=== PATIENT | female | born 1950 | race Caucasian/White ===

== ENCOUNTER 2023-02-27 16:13 | Outpatient (REF) | payer MEDICARE, SELFPAY ==
[2023-02-27 16:38] LABS: MANUAL DIFF FLAG NO
[2023-02-27 17:54] LABS: Basophils Absolute Auto 0.1 X10*3/uL (0.0-0.2); Basophils Percent Auto 1.1 % (0-2); Eosinophils Absolute Auto 0.3 X10*3/uL (0.0-0.4); Eosinophils Percent Auto 4.6 % (0-4); Hematocrit 34.5 % (37.0-47.0); Hemoglobin 11.3 g/dl (12.0-16.0); Imm Gran Abs Auto 0.02 X10*3/uL (0.00-0.03); Imm Gran Pct Auto 0.4 % (0.0-0.4); Lymphocytes Absolute Auto 1.4 X10*3/uL (1.2-4.9); Lymphocytes Percent Auto 24.6 % (20-40); Mean Corpuscular HGB Conc 32.8 g/dl (31.0-35.0); Mean Corpuscular Hemoglobin 31.9 pg (27.0-33.0); Mean Corpuscular Volume 97.5 fL (80.0-98.0); Mean Platelet Volume 10.3 fL (9.4-12.3); Monocytes Absolute Auto 0.6 X10*3/uL (0.1-1.2); Monocytes Percent Auto 9.7 % (2-11); Neutrophils Absolute Auto 3.4 x10*3/uL (2.0-8.3); Neutrophils Percent Auto 59.6 % (45-73); Platelet Count 332 X10*3/uL (160-400); Red Blood Count 3.54 X10*6/uL (4.20-5.50); Red Cell Distribution Width 12.8 % (11.0-16.0); White Blood Count 5.7 X10*3/uL (4.8-10.8)
[2023-02-27 18:18] LABS: Alanine Aminotransferase 11 U/L (0-31); Albumin Level 3.8 g/dL (3.5-5.0); Alkaline Phosphatase 141 U/L (39-117); Anion Gap 14 (12-20); Aspartate Amino Transferase 15 U/L (5-31); Bilirubin Direct < 0.2 mg/dL (0.0-0.5); Bilirubin Total 0.2 mg/dL (0.0-1.0); Blood Urea Nitrogen 31 mg/dL (9-16); Calcium 9.3 mg/dL (8.4-10.2); Carbon Dioxide 22 mmol/L (22-29); Chloride 106 mmol/L (96-108); Estimated Glomerular Filt Rate 39; Glucose Random 107 mg/dL (60-115); Potassium 3.6 mmol/L (3.3-5.1); Sodium 138 mmol/L (135-145); Total Protein 7.1 g/dL (6.5-8.0)
== END 2023-02-27 16:14 | disposition home or self-care (01) ==
LOC: HO.LAB 16:13
PROVIDERS: Visit Provider Registered Nurse
DX: G35 Multiple sclerosis (principal)
CPT/HCPCS: 36415; 80048; 80076; 85025

== ENCOUNTER 2024-09-30 10:12 | Outpatient (AMB) | payer MEDICARE, SELFPAY ==
--- NOTE | 2024-09-30 11:13 | A.OFFVIS_ITS ---
Intake Visit Reasons: 2m f/u Allergies atorvastatin (From Lipitor) Allergy (Verified 09/29/24 15:44) Unknown ciprofloxacin (From Cipro) Allergy (Verified 09/29/24 15:44) Unknown Sulfa (Sulfonamide Antibiotics) Allergy (Verified 09/29/24 15:44) Unknown Medication List - Last Reconciled 09/30/24 by Lauri Melendez MD baclofen 10 mg PO DAILY carbamazepine mg PO carvedilol 3.125 mg PO BID colesevelam 1,875 mg PO BID fluoxetine 40 mg PO DAILY folic acid 1 mg PO DAILY lisinopril 30 mg PO DAILY meloxicam 15 mg PO DAILY ofatumumab (Kesimpta Pen) mg subcut pravastatin 10 mg PO BEDTIME HPI Comments Details: Currently on Kesimpta since 06/08/24. In the last 2 weeks she has had numbness from knees down bilaterally, R>L with some ankle swelling on the right. She has noted that she feel sout of sorts when she walks and? and feels unstsady. Unstaedy gait . Uses the hicks or a walker when outside. Has urinary frequency and burning also. ?No accidents or injuries. No cold or flu-like illness. No headaches. No numbness or tingling. MRI brain and C-spine on 02/06/2024 were stable with extensive supratentorial and brain stem, C-spine lesion burden, was not on DMD. Takes care of grandchildren and takes care of cooking. Does not drive because of poor vision from macular degeneration. Periods of dizziness, ongoing since 11/2022. Few minor falls at home. Walking with walker when outside of home. Left leg feels bit weaker at times. Bladder control is Ok mostly. Uses Depends now. Mood is okay. Sleep is okay. Had trigeminal neuralgia in 2021 in left face that lasted 6 months. Diagnosed with multiple sclerosis in 1970s, treated with Copaxone for about 1 year at some point. Tried Bafiertam in 04/2023, but stopped after few weeks after becoming itchy all over without rash. Vital Signs [facility] Medical History (Updated 09/30/24 @ 11:27 by Lauri Melendez MD) Depression with anxiety Hypertension HLD (hyperlipidemia) Cervical disc disease Multiple sclerosis Social History (Updated 09/29/24 @ 15:43 by Lori Bernal MA) Patient Tobacco Use Status: Never used Tobacco Review of Systems Const Details: General/Constitutional:? Change in appetitedenies,?denies.? Chillsdenies,?denies.? Fatigueadmits,?admits .? Feverdenies,?denies.? Weight gaindenies,?denies.? Weight lossdenies,?denies. ???Sleep:? Difficulty getting to sleepdenies,?denies.? Difficulty maintaining sleep denies?,?denies?.? Urge to move legsdenies,?denies.? Teeth grinding denies,?denies.? Shouting or Kicking during sleepdenies,?denies.? Abnormal behavior during sleepdenies,?denies.? Excessive sleepdenies,?denies.? Snoring denies,?denies.? Daytime sleepinessdenies,?denies. ???Respiratory:? Shortness of breathdenies,?denies.? Chest paindenies,?denies.? Cough denies,?denies. ???Cardiovascular:? Chest pain at restdenies,?denies.? Chest pain with exertiondenies,?denies.? Claudicationdenies,?denies.? Dizzinessdenies,?denies.? Fluid accumulation in the legsdenies,?denies.? Irregular heartbeatdenies,?denies.? Palpitationsdeni es,?denies. ???Gastrointestinal:? Abdominal paindenies,?denies.? Constipationdenies,?denies.? Diarrhea denies,?denies.? Difficulty swallowingdenies,?denies.? Heartburndenies,?denies.? Nauseadenies,?denies.? Rectal bleedingdenies,?denies. ???Genitourinary:? Frequent urinationdenies,?denies.? Urgencyadmits,?admits.? Incontinence denies,?denies.? Erectile Dysfunctiondenies,?denies. ???Musculoskeletal:? Neck paindenies,?denies.? Back paindenies,?denies.? Muscle achesdenies,?denies .? Painful jointsdenies,?denies.? Sciaticadenies,?denies.? Weakness admits,?admits. ???Neurologic:? Difficulty swallowingadmits,?admits.? Balance difficultydenies,?denies.? Coordinationnormal,?normal.? Difficulty speakingdenies,?denies.? Dizzinessadmits ,?admits.? Faintingdenies,?denies.? Gait abnormalitydenies,?denies.? Headache denies,?denies.? Loss of strengthdenies,?denies.? Loss of use of extremity denies,?denies.? Low back paindenies,?denies.? Memory lossadmits,?admits.? Seizuresdenies,?denies.? Ticsdenies,?denies.? Tingling/Numbnessdenies,?denies.? Transient loss of visiondenies,?denies.? Tremordenies,?denies. ???Psychiatric:? Anxietydenies,?denies.? Auditory/visual hallucinationsdenies,?denies.? Delusionsdenies,?denies.? Depressed moodadmits,?admits.? Stressorsadmits,?admits .? Substance abusedenies,?denies.? Suicidal thoughtsdenies,?denies. Physical Exam Neuro Other: Neurological: Abnormal neurological findings:??Left internuclear ophthalmoplegia.? Mild weakness of left hip flexors.? Slight hyperreflexia in the right knee. Walking with walker.?Mental Status:??alert and oriented X 3,?Normal attention, orientation, memory and affect.?Cranial Nerves:??Pupils are equal, round and reactive to light. Fundoscopy shows normal disc bilaterally. External occular muscles with internuclear ophthalmoplegia as described above?. Vsual ferreira are full, no ptosis. Face is symmetrical, no facial weakness or droop. Facial sensations are normal. Tongue protrudes in midline. Palate elevates symmetrically. Shoulder shrugging is normal..?Motor Examination:??As above Normal muscle tone, bulk and strength,?No atrophy or fasciculations,?No drift of the extended upper extremities,?Deep tendon reflexes are 2+?,?Plantars are flexor?.?Straight Leg Raising:??90 degrees.?Sensory Exam:??Normal light touch, temperature, pinprick, vibration and joint-position sensations?,?Rhomberg sign is absent.?Coordination:??no ataxia,?no titubation,?mkbsno-mt-qqmg, noiy-vrdi-flrm test and rapid alternating movements were normal.?Gait Exam:??walking with walker.?Cerebellar Signs:??Tzhxbq-mh-aada and xvkj-fy-zpcq is normal,?no dysdiadochokinesia?.?Extrapyramidal System:??No tremor, rigidity with normal facial expressions,?No bradykinesia, no bradyphrenia. Normal arm swing and posture. No propulsion or retropulsion.?Speech:??Normal,?no dysphasia or dysarthria..? Mini Mental Status Exam: Level of Consciousness:??Alert.?Orientation:??Knows correct year, month, date, day and season,?Knows correct city, county and state. Knows correct location and floor.?Registration:??Able to register 3 objects.?Attention:??Serial 7's performed accurately.?Recall:??Able to recall 3 out of 3 objects.?Language:??Normal spontaneous speech, fluency, repetition,naming, comprehension, reading and writing.?Total Score:??30/30.? General Examination: GENERAL APPEARANCE:??normal,?in no acute distress.?HEART:??S1, S2 normal,?no murmurs.?LUNGS:??clear anteriorly and posteriorly.?MU SCULOSKELETAL:??normal.?EXTREMITIES:??no edema.?PSYCH:??alert, oriented,?cognitive function intact,?cooperative with exam.? Assessment & Plan Assessment & Plan (1) UTI (urinary tract infection): Code(s): N39.0 - Urinary tract infection, site not specified Category: Medical (2) Multiple sclerosis: Comment: since 1970s Code(s): G35 - Multiple sclerosis Category: Medical Plan Continue current meds. Check labs. Monitor for worsening OF new Numbness of legs Orders: Orders Basic Metabolic Panel Today G35 - Multiple sclerosis, N39.0 - Urinary tract infection, site not specified UA CC w/rflx Micro + Cult Today G35 - Multiple sclerosis, N39.0 - Urinary tract infection, site not specified Complete Blood Count Auto Diff Today N39.0 - Urinary tract infection, site not specified Coding Level of Care Code Est Pt Level 4 (37435) Diagnoses UTI (urinary tract infection) N39.0 Multiple sclerosis G35
--- NOTE | 2024-09-30 11:43 | A.OFFVIS_ITS ---
Intake Visit Reasons: 2m f/u Allergies atorvastatin (From Lipitor) Allergy (Verified 09/29/24 15:44) Unknown ciprofloxacin (From Cipro) Allergy (Verified 09/29/24 15:44) Unknown Sulfa (Sulfonamide Antibiotics) Allergy (Verified 09/29/24 15:44) Unknown Medication List - Last Reconciled 09/30/24 by Lauri Melendez MD baclofen 10 mg PO DAILY carbamazepine mg PO carvedilol 3.125 mg PO BID colesevelam 1,875 mg PO BID fluoxetine 40 mg PO DAILY folic acid 1 mg PO DAILY lisinopril 30 mg PO DAILY meloxicam 15 mg PO DAILY ofatumumab (Kesimpta Pen) mg subcut pravastatin 10 mg PO BEDTIME HPI Comments Details: The patient is a 74-year-old female with RR-MS opresenting with worsening bilateral lower extremity numbness and difficulty walking. The patient has abno rmal sensations in both legs from the knees down, worse in the right leg, alongside swelling around the right ankle. Symptoms emerged around the 15 of September. She also experiences vertigo with a spinning sensation that might relate to rapid head movements; this is mostly noted when the patient is walking or upon standing up. Besides, she reports increased urinary frequency accompanied by a slight burning sensation and recent constipation. She started Kesimpta on 06/08/24 MRI brain and C-spine on 02/06/2024 were stable with extensive supratentorial and brain stem, C-spine lesion burden, was not on DMD. Takes care of grandchildren and takes care of cooking. Does not drive because of poor vision from macular degeneration. Periods of dizziness, ongoing since 11/2022. Few minor falls at home. Walking with walker when outside of home. Left leg feels bit weaker at times. Bladder control is okay. Mood is okay. Sleep is okay. Had trigeminal neuralgia in 2021 in left face that lasted 6 months. Diagnosed with multiple sclerosis in , treated with Copaxone for about 1 year at some point. Tried Bafiertam in 04/2023, but stopped after few weeks after becoming itchy all over without rash. [facility] Medical History (Updated 09/30/24 @ 11:27 by Lauri Melendez MD) Depression with anxiety Hypertension HLD (hyperlipidemia) Cervical disc disease Multiple sclerosis Social History (Updated 09/29/24 @ 15:43 by Lori Bernal MA) Patient Tobacco Use Status: Never used Tobacco Review of Systems Const Details: General/Constitutional:? Change in appetitedenies,?denies.? Chillsdenies,?denies.? Fatigueadmits,?admits .? Feverdenies,?denies.? Weight gaindenies,?denies.? Weight lossdenies,?denies. ???Sleep:? Difficulty getting to sleepdenies,?denies.? Difficulty maintaining sleep denies?,?denies?.? Urge to move legsdenies,?denies.? Teeth grinding denies,?denies.? Shouting or Kicking during sleepdenies,?denies.? Abnormal behavior during sleepdenies,?denies.? Excessive sleepdenies,?denies.? Snoring denies,?denies.? Daytime sleepinessdenies,?denies. ???Respiratory:? Shortness of breathdenies,?denies.? Chest paindenies,?denies.? Cough denies,?denies. ???Cardiovascular:? Chest pain at restdenies,?denies.? Chest pain with exertiondenies,?denies.? Claudicationdenies,?denies.? Dizzinessdenies,?denies.? Fluid accumulation in the legsdenies,?denies.? Irregular heartbeatdenies,?denies.? Palpitations denies,?denies. ???Gastrointestinal:? Abdominal paindenies,?denies.? Constipationdenies,?denies.? Diarrhea denies,?denies.? Difficulty swallowingdenies,?denies.? Heartburndenies,?denies.? Nauseadenies,?denies.? Rectal bleedingdenies,?denies. ???Genitourinary:? Frequent urinationdenies,?denies.? Urgencyadmits,?admits.? Incontinence denies,?denies.? Erectile Dysfunctiondenies,?denies. ???Musculoskeletal:? Neck paindenies,?denies.? Back paindenies,?denies.? Muscle achesdenies,?denies .? Painful jointsdenies,?denies.? Sciaticadenies,?denies.? Weaknessadmits,? admits. ???Neurologic:? Difficulty swallowingadmits,?admits.? Balance difficultydenies,?denies.? Coordinationnormal,?normal.? Difficulty speakingdenies,?denies.? Dizzinessadmits ,?admits.? Faintingdenies,?denies.? Gait abnormalitydenies,?denies.? Headache denies,?denies.? Loss of strengthdenies,?denies.? Loss of use of extremity denies,?denies.? Low back paindenies,?denies.? Memory lossadmits,?admits.? Seizuresdenies,?denies.? Ticsdenies,?denies.? Tingling/Numbnessdenies,?denies.? Transient loss of visiondenies,?denies.? Tremordenies,?denies. ???Psychiatric:? Anxietydenies,?denies.? Auditory/visual hallucinationsdenies,?denies.? Delusionsdenies,?denies.? Depressed moodadmits,?admits.? Stressorsadmits,?admits .? Substance abusedenies,?denies.? Suicidal thoughtsdenies,?denies. Physical Exam Neuro Other: Neurological: Abnormal neurological findings:??Left internuclear ophthalmoplegia.? Mild weakness of left hip flexors.? Slight hyperreflexia in the right knee. Walking with walker.?Mental Status:??alert and oriented X 3,?Normal attention, orientation, memory and affect.?Cranial Nerves:??Pupils are equal, round and reactive to light. Fundoscopy shows normal disc bilaterally. External occular muscles with internuclear ophthalmoplegia as described above?. Vsual ferreira are full, no ptosis. Face is symmetrical, no facial weakness or droop. Facial sensations are normal. Tongue protrudes in midline. Palate elevates symmetrically. Shoulder shrugging is normal..?Motor Examination:??As above Normal muscle tone, bulk and strength,?No atrophy or fasciculations,?No drift of the extended upper extremities,?Deep tendon reflexes are 2+?,?Plantars are flexor?.?Straight Leg Raising:??90 degrees.?Sensory Exam:??Normal light touch, temperature, pinprick, vibration and joint-position sensations?,?Rhomberg sign is absent.?Coordination:??no ataxia,?no titubation,?congpo-qh-pdyh, xtnb-ahgh-yuzl test and rapid alternating movements were normal.?Gait Exam:??walking with walker.?Cerebellar Signs:??Eilzog-rm-ecqr and tnld-lc-mdgu is normal,?no dysdiadochokinesia?.?Extrapyramidal System:??No tremor, rigidity with normal facial expressions,?No bradykinesia, no bradyphrenia. Normal arm swing and posture. No propulsion or retropulsion.?Speech:??Normal,?no dysphasia or dysarthria..? Mini Mental Status Exam: Level of Consciousness:??Alert.?Orientation:??Knows correct year, month, date, day and season,?Knows correct city, county and state. Knows correct location and floor.?Registration:??Able to register 3 objects.?Attention:??Serial 7's performed accurately.?Recall:??Able to recall 3 out of 3 objects.?Language:??Normal spontaneous speech, fluency, repetition,naming, comprehension, reading and writing.?Total Score:??30/30.? General Examination: GENERAL APPEARANCE:??normal,?in no acute distress.?HEART:??S1, S2 normal,?no murmurs.?LUNGS:??clear anteriorly and posteriorly.?MUSCULOSKELETAL:??normal.?EXTREMITIES:??no edema.?PSYCH:??alert, oriented,?cognitive function intact,?cooperative with exam.? Assessment & Plan Assessment & Plan (1) UTI (urinary tract infection): Code(s): N39.0 - Urinary tract infection, site not specified Category: Medical (2) Multiple sclerosis: Comment: since 1970s Code(s): G35 - Multiple sclerosis Category: Medical Plan Continue current meds . Monitor worsening of numbness. Check labs Orders: Orders Basic Metabolic Panel Today G35 - Multiple sclerosis, N39.0 - Urinary tract infection, site not specified UA CC w/rflx Micro + Cult Today G35 - Multiple sclerosis, N39.0 - Urinary tract infection, site not specified Complete Blood Count Auto Diff Today N39.0 - Urinary tract infection, site not specified Coding Level of Care Code Est Pt Level 4 (45981) Diagnoses UTI (urinary tract infection) N39.0 Multiple sclerosis G35
== END 2024-09-30 11:36 | disposition home or self-care (01) ==
LOC: HO.HSM 10:12
PROVIDERS: PCP Physician Assistant Medical; Visit Provider Psychiatry & Neurology Neurology
DX: N39.0 Urinary tract infection, site not specified (principal); G35 Multiple sclerosis
CPT/HCPCS: 99214

== ENCOUNTER → 2024-09-30 10:12 | Outpatient (BNVA) | payer MEDICARE, SELFPAY | PROVIDERS: PCP Physician Assistant Medical; Visit Provider Psychiatry & Neurology Neurology | DX: G35 Multiple sclerosis (principal); R20.0 Anesthesia of skin; N39.0 Urinary tract infection, site not specified | CPT/HCPCS: 99212 ==

== ENCOUNTER 2024-11-19 14:22 | Outpatient (AMB) | payer MEDICARE, SELFPAY ==
--- NOTE | 2024-11-19 14:56 | MHC.OFFVIS ---
Intake Visit Reasons: [place] Allergies atorvastatin (From Lipitor) Allergy (Verified 09/29/24 15:44) Unknown ciprofloxacin (From Cipro) Allergy (Verified 09/29/24 15:44) Unknown Sulfa (Sulfonamide Antibiotics) Allergy (Verified 09/29/24 15:44) Unknown Medication List - Last Reconciled 11/19/24 by Lauri Melendez MD baclofen 10 mg PO DAILY carbamazepine 400 mg PO BID carvedilol 3.125 mg PO BID fluoxetine 40 mg PO DAILY folic acid 1 mg PO DAILY lisinopril 30 mg PO DAILY meloxicam 15 mg PO DAILY ofatumumab (Kesimpta Pen) mg subcut pravastatin 10 mg PO BEDTIME HPI Comments Details: The patient is a 74-year-old female with RR-MS opresenting with worsening bilateral lower extremity numbness and difficulty walking. The patient has abnormal sensations in both legs from the knees down, worse in the right leg, alongside swelling around the right ankle. Symptoms emerged around the 15 of September. She also experiences vertigo with a spinning sensation that might relate to rapid head movements; this is mostly noted when the patient is walking or upon standing up. Besides, she reports increased urinary frequency accompanied by a slight burning sensation and recent constipation. She started Kesimpta on 06/08/24 MRI brain and C-spine on 02/06/2024 were stable with extensive supratentorial and brain stem, C-spine lesion burden, was not on DMD. Takes care of grandchildren and takes care of cooking. Does not drive because of poor vision from macular degeneration. Periods of dizziness, ongoing since 11/2022. Few minor falls at home. Walking with walker when outside of home. Left leg feels bit weaker at times. Bladder control is okay. Mood is okay. Sleep is okay. Had trigeminal neuralgia in 2021 in left face that lasted 6 months. Diagnosed with multiple sclerosis in 1970s, treated with Copaxone for about 1 year at some point. Tried Bafiertam in 04/2023, but stopped after few weeks after becoming itchy all over without rash. [facility] Medical History (Updated 11/19/24 @ 15:07 by Lauri Melendez MD) Depression with anxiety Hypertension HLD (hyperlipidemia) Cervical disc disease Multiple sclerosis Social History (Updated 09/29/24 @ 15:43 by Lori Bernal MA) Patient Tobacco Use Status: Never used Tobacco Review of Systems Const Details: ?Sleep:? Difficulty getting to sleepdenies,?denies.? Difficulty maintaining sleepdenies?,?denies?.? Urge to move legsdenies,?denies.? Teeth grindingdenies,?denies.? Shouting or Kicking during sleepdenies,?denies.? Abnormal behavior during sleepdenies,?denies.? Excessive sleepdenies,?denies.? Snoringdenies,?denies.? Daytime sleepinessdenies,?denies. ???Respiratory:? Shortness of breathdenies,?denies.? Chest paindenies,?denies.? Coughdenies,?denies. ???Cardiovascular:? Chest pain at restdenies,?denies.? Chest pain with exertiondenies,?denies.? Claudicationdenies,?denies.? Dizzinessdenies,?denies.? Fluid accumulation in the legsdenies,?denies.? Irregular heartbeatdenies,?denies.? Palpitationsdenies,?denies. ???Gastrointestinal:? Abdominal paindenies,?denies.? Constipationdenies,?denies.? Diarrheadenies,?denies.? Difficulty swallowingdenies,?denies.? Heartburndenies,?denies.? Nauseadenies,?denies.? Rectal bleedingdenies,?denies. ???Genitourinary:? Frequent urinationdenies,?denies.? Urgencyadmits,?admits.? Incontinencedenies,?denies.? Erectile Dysfunctiondenies,?denies. ???Musculoskeletal:? Neck paindenies,?denies.? Back paindenies,?denies.? Muscle achesdenies,?denies.? Painful jointsdenies,?denies.? Sciaticadenies,?denies.? Weaknessadmits,?admits. ???Neurologic:? Difficulty swallowingadmits,?admits.? Balance difficultydenies,?denies.? Coordinationnormal,?normal.? Difficulty speakingdenies,?denies.? Dizzinessadmits,?admits.? Faintingdenies,?denies.? Gait abnormalitydenies,?denies.? Headachedenies,?denies.? Loss of strengthdenies,?denies.? Loss of use of extremitydenies,?denies.? Low back paindenies,?denies.? Memory lossadmits,?admits.? Seizuresdenies,?denies.? Ticsdenies,?denies.? Tingling/Numbnessdenies,?denies.? Transient loss of visiondenies,?denies.? Tremordenies,?denies. ???Psychiatric:? Anxietydenies,?denies.? Auditory/visual hallucinationsdenies,?denies.? Delusionsdenies,?denies.? Depressed moodadmits,?admits.? Stressorsadmits,?admits.? Substance abusedenies,?denies.? Suicidal thoughtsdenies,?denies. Physical Exam Neuro Other: Neurological: Abnormal neurological findings:??Left internuclear ophthalmoplegia.? Mild weakness of left hip flexors.? Slight hyperreflexia in the right knee. Walking with walker.?Mental Status:??alert and oriented X 3,?Normal attention, orientation, memory and affect.?Cranial Nerves:??Pupils are equal, round and reactive to light. Fundoscopy shows normal disc bilaterally. External occular muscles with internuclear ophthalmoplegia as described above?. Vsual ferreira are full, no ptosis. Face is symmetrical, no facial weakness or droop. Facial sensations are normal. Tongue protrudes in midline. Palate elevates symmetrically. Shoulder shrugging is normal..?Motor Examination:??As above Normal muscle tone, bulk and strength,?No atrophy or fasciculations,?No drift of the extended upper extremities,?Deep tendon reflexes are 2+?,?Plantars are flexor?.?Straight Leg Raising:??90 degrees.?Sensory Exam:??Normal light touch, temperature, pinprick, vibration and joint-position sensations?,?Rhomberg sign is absent.?Coordination:??no ataxia,?no titubation,?xjjkvr-gg-owpe, ebfq-tifi-dqxm test and rapid alternating movements were normal.?Gait Exam:??walking with walker.?Cerebellar Signs:??Mnuhxh-pw-yfbm and qicv-ly-sjvi is normal,?no dysdiadochokinesia?.?Extrapyramidal System:??No tremor, rigidity with normal facial expressions,?No bradykinesia, no bradyphrenia. Normal arm swing and posture. No propulsion or retropulsion.?Speech:??Normal,?no dysphasia or dysarthria..? Mini Mental Status Exam: Level of Consciousness:??Alert.?Orientation:??Knows correct year, month, date, day and season,?Knows correct city, county and state. Knows correct location and floor.?Registration:??Able to register 3 objects.?Attention:??Serial 7's performed accurately.?Recall:??Able to recall 3 out of 3 objects.?Language:??Normal spontaneous speech, fluency, repetition,naming, comprehension, reading and writing.?Total Score:??30/30.? General Examination: GENERAL APPEARANCE:??normal,?in no acute distress.?HEART:??S1, S2 normal,?no murmurs.?LUNGS:??clear anteriorly and posteriorly.?MUSCULOSKELETAL:??normal.?EXTREMITIES:??no edema.?PSYCH:??alert, oriented,?cognitive function intact,?cooperative with exam.? Assessment & Plan Assessment & Plan (1) Multiple sclerosis: Comment: since 1970s Code(s): G35 - Multiple sclerosis Category: Medical (2) UTI (urinary tract infection): Code(s): N39.0 - Urinary tract infection, site not specified Category: Medical (3) Osteoarthritis of right knee: Code(s): M17.11 - Unilateral primary osteoarthritis, right knee Category: Medical Plan Continue current meds . Monitor worsening of numbness. Check labs UA and C/S . Meloxicam for knees Orders: Orders UA and rflx microscopic Today N39.0 - Urinary tract infection, site not specified Urine Culture Today N39.0 - Urinary tract infection, site not specified Medications: New meloxicam 15 mg PO DAILY 30 tabs 3RF Coding Level of Care Code Est Pt Level 4 (17778) Diagnoses Multiple sclerosis G35 UTI (urinary tract infection) N39.0 Osteoarthritis of right knee M17.11
== END 2024-11-19 15:15 | disposition home or self-care (01) ==
LOC: HO.HSM 14:22
PROVIDERS: PCP Physician Assistant Medical; Visit Provider Psychiatry & Neurology Neurology
DX: G35 Multiple sclerosis (principal); N39.0 Urinary tract infection, site not specified; M17.11 Unilateral primary osteoarthritis, right knee
CPT/HCPCS: 99214

== ENCOUNTER 2024-11-19 14:22 | Outpatient (REF) | payer MEDICARE, SELFPAY ==
[2024-11-19 15:41] LABS: MANUAL DIFF FLAG NO
[2024-11-19 16:10] LABS: Hematocrit 35.7 % (37.0-47.0); Hemoglobin 11.8 g/dl (12.0-16.0); Imm Gran Abs Auto 0.01 X10*3/uL (0.00-0.03); Imm Gran Pct Auto 0.2 % (0.0-0.4); Lymphocytes Absolute Auto 1.7 X10*3/uL (1.2-4.9); Mean Corpuscular HGB Conc 33.1 g/dl (31.0-35.0); Mean Corpuscular Hemoglobin 31.6 pg (27.0-33.0); Mean Corpuscular Volume 95.5 fL (80.0-98.0); NRBC Abs Auto 0.000 X10*3/uL (0.0-0.012); NRBC Pct Auto 0.0 /100WBC (0.0-0.2); Platelet Count 274 X10*3/uL (160-400); Red Blood Count 3.74 X10*6/uL (4.20-5.50); White Blood Count 6.3 X10*3/uL (4.8-10.8)
[2024-11-19 17:01] LABS: Anion Gap 12 (12-20); Blood Urea Nitrogen 27 mg/dL (9-16); Calcium 9.0 mg/dL (8.4-10.2); Carbon Dioxide 23 mmol/L (22-29); Chloride 107 mmol/L (96-108); Estimated Glomerular Filt Rate 39; Potassium 4.5 mmol/L (3.3-5.1); Sodium 137 mmol/L (135-145)
[2024-11-19 19:33] LABS: Appearance Urine Clear; Glucose Urine UA Negative (Negative); PH 6.0 (5.0-9.0); Specific Gravity - Urine 1.015 (1.005-1.025); UMIC TRIGGER UA YES
== END 2024-11-19 14:23 | disposition home or self-care (01) ==
LOC: HO.LAB 14:22
PROVIDERS: PCP Physician Assistant Medical; Visit Provider Psychiatry & Neurology Neurology
DX: G35 Multiple sclerosis (principal); N39.0 Urinary tract infection, site not specified; M17.11 Unilateral primary osteoarthritis, right knee; R20.0 Anesthesia of skin
CPT/HCPCS: 36415; 80048; 81001; 81003; 85025; 87086; 99212